=== PATIENT | female | born 1995 | race Caucasian/White ===

== ENCOUNTER 2019-05-24 19:46 | Emergency (ER) | payer BC ==
[2019-05-24] MEDS ORDERED: LORazepam 2 MG/ML VIAL ONE (20:01)
[2019-05-24] MEDS ORDERED: LORazepam 2 MG/ML VIAL IV ONE ×2 (20:05→20:49)
[2019-05-24] MEDS ORDERED: ONDANSETRON HCL/PF 4 MG/ 2ML VIAL IVP ONE (20:07)
--- NOTE | 2019-05-24 20:08 | ED Physician Documentation ---
Palpitations - HISTORIAN Historian: patient, friend (SO) - HPI Stated Complaint: chest pain Chief Complaint: Palpitations Onset: minutes Timing: sudden onset, other (History of anxiety and depression. Doesn't take prescribed meds. Van 2 days ago that she has ectopic , likely right ovary. Had been visiting family in [place] and now on the way home to . Began rapid heart rate a few minutes before she got to this ER. ) Quality: fast, pounding heart beat Associated Symptoms: heart racing, anxiety Worsened by:: nothing - ROS CONST: no problems GI/: other (see above, ectopic ) EYES/ENT: none NEURO/PSYCH: anxiety - SOCIAL HX Smoking History: other (marijuana) Drug Use: marijuana - FAMILY HX Family History: none - PAST HX Cardiac Disease: other (none) Other History: anxiety disorder Surgeries/Procedures: none Allergies/Adverse Reactions: Allergies Allergy/AdvReac Type Severity Reaction Status Date / Time No Known Allergies Allergy Verified 05/24/19 19:59 Home Medications: Ambulatory Orders Medication Instructions Recorded NK 05/24/19 - VITAL SIGNS Vital Signs: Vital Signs Temp Pulse Resp BP Pulse Ox 98.8 F 139 H 19 129/81 93 05/24/19 19:54 05/24/19 20:16 05/24/19 19:54 05/24/19 19:54 05/24/19 19:54 - REVIEWED ASSESSMENTS Nursing Assessment Reviewed: Yes Vitals Reviewed: Yes Progress - Progress Progress: She specifically denied pain, either chest or abdomen. Her labs are stable compared to those done yesterday and earlier today. Quant is a send out here. EKG and Trop 1 are unremarkable. She remains quite anxious throughout. Assured that she would have pain if ectopic associated with ovary were to rupture. She is to follow up with her provider at home, tomorrow. ED Results Lab/Radiology - Orders Orders: ED Orders Category Date Time Status Continuous EKG monitoring Q1H Care 05/24/19 20:16 Active CBC/PLATELET/DIFF Stat Lab 05/24/19 20:11 Received CMP Routine Lab 05/24/19 20:11 Received HCG [SERUM HCG] Stat Lab 05/24/19 20:11 Received TROPONIN I DAILY Lab 05/24/19 20:21 Received URINALYSIS Stat Lab 05/24/19 Ordered LORazepam [Ativan] Med 05/24/19 20:05 Discontinued 0.5 mg IV NOW ONE LORazepam [Ativan] Med 05/24/19 20:49 Discontinued 0.5 mg IV NOW ONE LORazepam [Ativan] Med 05/24/19 20:01 Discontinued 2 mg .ROUTE .STK-MED ONE Ondansetron HCl/Pf [Zofran] Med 05/24/19 20:07 Discontinued 4 mg IVP NOW ONE EKG WITH COMPARISON Stat Ther 05/24/19 Ordered Palpitations Physical Exam - EXAM General Appearance: moderate distress EENT: eye inspection normal, ENT inspection normal (except poor dentition) NECK: normal inspection, supple RESPIRATORY: no respiratory distress, breath sounds nml, chest non-tender CVS: reg rate & rhythm, heart sounds normal, no murmur, no gallop, tachycardia (134) ABDOMEN: soft, no distension, tenderness (mild, she is distractable) BACK: normal inspection SKIN: warm/dry, normal color EXTREMITIES: non-tender, no evidence of injury, other (normal gait and stance) NEURO: motor nml, sensation nml Discharge Clincal Impression: Anxiety Ectopic of ovary Qualifiers: Intrauterine status: without intrauterine Laterality: right Qualified Code(s): O00.201 - Right ovarian without intrauterine Referrals: Primary Doctor,No [Primary Care Provider] - 2 Days Condition: Fair Disposition: 01 HOME, SELF-CARE Decision to Admit: NO Decision Time: 21:20
[2019-05-24 21:24] VITALS: BP 117/72
[2019-05-25 06:17] LABS: APPEARANCE,URINE CLEAR (CLEAR); COLOR,URINE YELLOW (YELLOW); OCCULT BLOOD,URINE 3+ (NEGATIVE)
[2019-05-25 07:16] LABS: NEUTROPHILS # 6.2 # k/uL (1.4-7.7)
[2019-05-25 07:17] LABS: eGFR (Non-African) > 60
== END 2019-05-24 21:17 | disposition home or self-care (01) ==
LOC: ED 19:46
DX: O00.201 Right ovarian pregnancy without intrauterine pregnancy (principal); O99.340 Other mental disorders complicating pregnancy, unspecified trimester; F41.9 Anxiety disorder, unspecified; Z3A.00 Weeks of gestation of pregnancy not specified
CPT/HCPCS: 80053; 81002; 84484; 84703; 85025; 93005; 96374; 96375; 96376; 99284; J2060; J2405; S1016